=== PATIENT | female | born 1980 | race Caucasian/White ===

== ENCOUNTER 2017-05-11 11:59 | Emergency (ER) | payer OTHER ==
[~2017-05-11] VITALS: Ht 157.5 cm; Wt 64.3 kg
[2017-05-11 12:19] LABS: ADD MIUA? YES; BILIRUBIN NEGATIVE; BLOOD NEGATIVE; COLOR AMBER ((YELLOW)); GLUCOSE (STRIP) NEGATIVE; KETONES NEGATIVE; LEUKOCYTES NEGATIVE; NITRITE POSITIVE; PROTEIN (STRIP) NEGATIVE; SPECIFIC GRAVITY 1.013 (1.000-1.030); UROBILINOGEN 0.2 MG/DL (0.2-1.0)
[2017-05-11] MEDS ORDERED: BACTRIM,SEPT1 TABLET PO (12:29)
[2017-05-11 12:39] LABS: BACTERIA NONE SEEN /HPF; EPITHELIAL CELLS RARE /HPF; MUCUS TRACE /LPF; RED BLOOD CELLS 0-5 /HPF (0-5); UCUL ADDED? NO; WHITE BLOOD CELLS 0-5 /HPF (0-5)
[2017-05-11 13:22] LABS: HEMATOCRIT 38.7 % (36.0-46.0); MCH 31.4 PG (29.0-34.0); MCHC 34.1 G/DL (30.0-36.0); MCV 91.9 FL (83-99); RBC DIS.WIDTH-CV 12.2 % (11.8-14.6); RBC DIS.WIDTH-SD 40.7 % (39-53); RED BLOOD COUNT 4.21 M/uL (3.80-5.20)
[2017-05-11 13:24] LABS: CHLORIDE 108 mEq/L (99-109); POTASSIUM 4.2 mEq/L (3.7-5.4); SODIUM 138 mEq/L (136-147)
[2017-05-11 13:27] LABS: GLUCOSE 104 mg/dL (70-99)
[2017-05-11 13:28] LABS: ANION GAP 7 MEQ/L (2-14)
[2017-05-11 13:29] LABS: TOTAL BILIRUBIN 0.5 mg/dL (0.0-1.0)
[2017-05-11 13:30] LABS: ALKALINE PHOSPHATASE 64 IU/L (3-129); GFR ESTIMATE (CALCULATED) > 59 mL/min/
[2017-05-11 13:31] LABS: UREA NITROGEN (BUN) 9 mg/dL (9-23)
[2017-05-11 13:34] LABS: LIPASE 18 U/L (1.0-51.0)
[2017-05-11 13:40] LABS: QUANTITATIVE HCG < 4.0 MIU/ML
[2017-05-11 14:12] LABS: MEAN PLAT.VOLUME 11.4 uM^3 (9.5-12.4); PLAT.SUFFICIENCY ADEQUATE; PLATELET COUNT 235 K/uL (156-360)
[2017-05-11] MEDS ORDERED: ULTRAM50 MG PO (14:57)
[2017-05-11 15:10] VITALS: BP 139/67
== END 2017-05-11 15:11 | disposition home or self-care (01) ==
LOC: EME 11:59
DX: N30.00 Acute cystitis without hematuria (principal); K82.9 Disease of gallbladder, unspecified; Z79.2 Long term (current) use of antibiotics; Z87.442 Personal history of urinary calculi; Z88.0 Allergy status to penicillin
CPT/HCPCS: 74176; 80053; 81003; 83690; 84702; 85027; 87086; 99281; 99284

== ENCOUNTER 2017-07-18 09:25 | Day surgery (SDC) | payer OTHER ==
[~2017-07-18] VITALS: Ht 158.8 cm; Wt 63.5 kg
[~2017-07-18 09:25] MED LIST: BACTRIM,SEPT1 TABLET PO; ESSENTIAL DAIL1 EACH PO; ULTRAM50 MG PO
[2017-07-18 10:24] VITALS: BP 112/66
[2017-07-18] MEDS ORDERED: NORCO 5/3251 TABLET PO (13:22)
[2017-07-18] MEDS ORDERED: MOTRIN600 MG PO (13:22)
[2017-07-18 15:07] VITALS: BP 135/65
[2017-07-18 16:07] VITALS: BP 120/60
== END 2017-07-18 16:33 | disposition home or self-care (01) ==
LOC: SDC 09:25
DX: K80.10 Calculus of gallbladder with chronic cholecystitis without obstruction (principal); R00.2 Palpitations; R11.0 Nausea; I34.1 Nonrheumatic mitral (valve) prolapse; Z88.0 Allergy status to penicillin
CPT/HCPCS: 74300; 88304; C1769; J0131; J1100; J1170; J2250; J2405; J2710; J2765; J3010; S0020